=== PATIENT | female | born 1955 | race Caucasian/White ===

== ENCOUNTER 2022-08-11 00:24 | Day surgery (SDC) | payer MEDICARE, SELFPAY ==
[2022-07-29 12:15] VITALS: BMI 35.0
[2022-08-11 07:10] VITALS: BP 164/80; PULSE 81; RESP 18; TEMP 36.1; O2SAT 96; BMI 35.9
[2022-08-11] MEDS: LACTATED RINGERS 1,000 ML 150 ML IV CONT (07:32)
[2022-08-11 07:35] LABS: Glucose Point of Care 193 mg/dl (65-105)
--- NOTE | 2022-08-11 07:55 | WPDANESEPPF ---
Anes - Initial Pre Proc Eval Procedure: Operation Date: 08/11/22 08:30 Proposed Procedures p Screening Colonoscopy - Adam Guerra MD Date/Time: 08/11/22 07:55 Surgeon: Adam Guerra MD Pre Op Diagnosis: neoplasm screening Patient Data Age: 67 Gender: F Height: 1.65 m Weight: 97.9 kg Last Vital Signs Temp 97.0 F L 08/11/22 07:10 Pulse 81 08/11/22 07:10 Resp 18 08/11/22 07:10 BP 164/80 H 08/11/22 07:10 Pulse Ox 96 08/11/22 07:10 O2 Del Method Room Air 08/11/22 07:10 Allergies Allergy/AdvReac Type Severity Reaction Status Date / Time Nguyen chemical AdvReac Anaphylaxis Uncoded 08/11/22 07:17 Home Medications Medication Instructions Recorded Confirmed Type blood sugar diagnostic (OneTouch #100 ea 04/07/21 08/11/22 Rx Ultra Blue Test Strip) blood-glucose meter (Blood Glucose #1 ea 04/07/21 08/11/22 Rx Monitoring kit) lancets (OneTouch UltraSoft #100 ea 04/07/21 08/11/22 Rx Lancets) amlodipine 5 mg tablet 5 mg PO DAILY #90 tabs 12/31/21 08/11/22 Rx glipizide 5 mg tablet, extended 5 mg PO DAILY #90 tabs 12/31/21 08/11/22 Rx release 24 hr lisinopril 20 mg tablet 20 mg PO DAILY #90 tabs 12/31/21 08/11/22 Rx metoprolol tartrate 100 mg tablet 100 mg PO Q12H #180 tabs 12/31/21 08/11/22 Rx simvastatin 40 mg tablet 40 mg PO QHS #90 tabs 12/31/21 08/11/22 Rx metformin 1,000 mg tablet 1,000 mg PO BID #180 tabs 04/30/22 08/11/22 Rx cyclobenzaprine 10 mg tablet 10 mg PO BID PRN muscle spasm #90 07/20/22 08/11/22 Rx tabs Laboratory Tests 08/11/22 07:26 POC Capillary Glucose 193 mg/dl H mg/dl (65-105) Patient hx anesthesia problems: none Family hx anesthesia problems: none Results Review: All pre-operative results and documents have been reviewed as part of the pre-operative evaluation. [facility] Past Medical History Medical History (Updated 04/10/22 @ 19:35 by Zoe Cruz NP) Backache Dyslipidemia Environmental allergies Essential (primary) hypertension Irregular heart rhythm Osteoarthritis Type 2 diabetes mellitus Surgical History Surgical History History of arthroscopic surgery of shoulder 2007 - Right shoulder for frozen shoulder post traumatic dislocation Family History Family History Father Bladder cancer Hypertension Mother Hypertension Alzheimer disease Social History Social History Smoking packs per day: 1 Smoking cigarettes per day: 20.0 Years smoked: 16 Smoking pack-years: 16.00 Smoking status: Former smoker Tobacco type: cigarettes Alcohol intake: current Substance use: never Substance use type: does not use Living arrangements: alone Gender identity (if verbalized by the patient): Female Agree to blood products: Yes Anes - Eval Final PreProcedure Day of Procedure 08/11/22 07:55 Patient weight: obese Heart: regular rate and rhythm Lungs: clear to auscultation Airway: Mallampati scale class II Neurological: alert and oriented Last oral intake: >/= 8 hours ASA classification: III Emergent: no Anesthetic plan: proceed Anesthesia type and monitoring: general GIVS and standard monitoring Results Review: All pre-operative results and documents have been reviewed as part of the pre-operative evaluation. Informed Consent: The patient's anesthetic plan and its attendant risks and benefits were discussed with the patient/family/POA. Questions were solicited and answers provided to the satisfaction of the patient/family/POA.
--- NOTE | 2022-08-11 08:08 | PM.HPGS ---
History of Present Illness History of Present Illness Consent: Risks, benefits, and alternatives have been discussed and questions answered. Patient agrees to proceed with procedure. Chief complaint: neoplasm screening Narrative: Annie Woodson is a 67 year old female Presents for screening colonoscopy. Patient reports that her current weight appetite will lungs are normal. Patient denies abdominal pain. She has had no bleeding. Family history is noncontributory. Patient presents today for neoplasia screening colonoscopy. Last exam 10 years ago was told to be unremarkable. Review of Systems Review of Systems: Review of systems noncontributory. [facility] Past Medical History Medical History (Updated 08/11/22 @ 08:09 by Adam Guerra MD) Backache Dyslipidemia Environmental allergies Essential (primary) hypertension Irregular heart rhythm Osteoarthritis Type 2 diabetes mellitus Surgical History Surgical History History of arthroscopic surgery of shoulder 2007 - Right shoulder for frozen shoulder post traumatic dislocation Family History Family History Father Bladder cancer Hypertension Mother Hypertension Alzheimer disease Social History Social History Smoking packs per day: 1 Smoking cigarettes per day: 20.0 Years smoked: 16 Smoking pack-years: 16.00 Smoking status: Former smoker Tobacco type: cigarettes Alcohol intake: current Substance use: never Substance use type: does not use Living arrangements: alone Gender identity (if verbalized by the patient): Female Agree to blood products: Yes Meds Home Medications and Allergies Home Medications Medication Instructions Recorded Confirmed Type blood sugar diagnostic (OneTouch #100 ea 04/07/21 08/11/22 Rx Ultra Blue Test Strip) blood-glucose meter (Blood Glucose #1 ea 04/07/21 08/11/22 Rx Monitoring kit) lancets (Pro[employer] biostructuresTouch UltraSoft #100 ea 04/07/21 08/11/22 Rx Lancets) amlodipine 5 mg tablet 5 mg PO DAILY #90 tabs 12/31/21 08/11/22 Rx glipizide 5 mg tablet, extended 5 mg PO DAILY #90 tabs 12/31/21 08/11/22 Rx release 24 hr lisinopril 20 mg tablet 20 mg PO DAILY #90 tabs 12/31/21 08/11/22 Rx metoprolol tartrate 100 mg tablet 100 mg PO Q12H #180 tabs 12/31/21 08/11/22 Rx simvastatin 40 mg tablet 40 mg PO QHS #90 tabs 12/31/21 08/11/22 Rx metformin 1,000 mg tablet 1,000 mg PO BID #180 tabs 04/30/22 08/11/22 Rx cyclobenzaprine 10 mg tablet 10 mg PO BID PRN muscle spasm #90 07/20/22 08/11/22 Rx tabs Allergies Allergy/AdvReac Type Severity Reaction Status Date / Time Nguyen chemical AdvReac Anaphylaxis Uncoded 08/11/22 07:17 Vital Signs Vital Signs - 24 hr 08/11/22 07:10 Temperature 97.0 F L Pulse Rate 81 Respiratory Rate 18 Blood Pressure 164/80 H Pulse Oximetry 96 Oxygen Delivery Room Air Exam Narrative: Physical exam reveals patient to be alert. Vital signs stable. HEENT exam is unremarkable. Patient is anicteric. Lungs are clear to auscultation and percussion. Heart is without murmur or extra sounds. Abdomen bowel sounds are present soft nontender with no organomegaly. Digital external rectal exam normal. Assessment and Plan Assessment and plan (1) Encounter for screening colonoscopy: Code(s): Z12.11 - Encounter for screening for malignant neoplasm of colon Status: Acute Assessment and Plan: Patient presents today for neoplasia screening colonoscopy. She appears to be at average risk for colon polyps. Further recommendations may be given after endoscopy.
[2022-08-11 09:08] VITALS: BP 132/69; PULSE 71; RESP 19; O2SAT 100
[2022-08-11 09:18] VITALS: BP 135/76; PULSE 73; RESP 25; O2SAT 100
[2022-08-11 09:28] VITALS: BP 141/78; PULSE 66; RESP 20; O2SAT 100
== END 2022-08-11 09:41 | disposition home or self-care (01) ==
PROVIDERS: PCP Family Medicine; Visit Provider Internal Medicine Gastroenterology
PROC: 0DJD8ZZ Inspection of Lower Intestinal Tract, Via Natural or Artificial Opening Endoscopic (ICD-10-PCS; CPT 45378; principal; 2022-08-11 08:30)
DX: Z12.11 Encounter for screening for malignant neoplasm of colon (principal); K57.30 Diverticulosis of large intestine without perforation or abscess without bleeding; K64.8 Other hemorrhoids; E78.5 Hyperlipidemia, unspecified; I10 Essential (primary) hypertension; M19.90 Unspecified osteoarthritis, unspecified site; E11.9 Type 2 diabetes mellitus without complications; I49.9 Cardiac arrhythmia, unspecified; Z87.891 Personal history of nicotine dependence; Z79.84 Long term (current) use of oral hypoglycemic drugs; E66.9 Obesity, unspecified; Z68.35 Body mass index [BMI] 35.0-35.9, adult
CPT/HCPCS: G0121; 82948; J2704; J7120

== ENCOUNTER 2022-12-30 08:07 | Outpatient (CLI) | payer MEDICARE, SELFPAY ==
--- NOTE | ~2022-12-30 | MM_ITS ---
EXAMINATION: MM screening hu BI w nidia HISTORY: Screening mammogram TECHNIQUE: Craniocaudal and mediolateral oblique 3-D tomosynthesis images were obtained and synthetic 2-D images were generated. CAD analysis was submitted and interpreted. COMPARISON: No prior mammogram is available for comparison at this institution. BREAST PARENCHYMAL COMPOSITION: The breasts are almost entirely fatty. FINDINGS: There is no evidence of suspicious mass, calcification, or architectural distortion to sugg est malignancy in either breast. There has been no suspicious interval change. IMPRESSION: 1. No mammographic evidence of malignancy. 2. Recommend routine screening mammography in one year. BI-RADS Category 1: Negative Reviewed, dictated and finalized at location A. [employer]
--- NOTE | ~2022-12-30 | DEXA_ITS ---
Bone Density Report Name: ADRIANO HUMPHRIES Age: 67 Sex: Female Ethnicity: White Date of : 1955 Indication: postmenopausal; screening for osteoporosis; prior fracture; Referring Provider: TEODORO RETANA Study: Bone densitometry was performed. Exam Date: December 30, 2022 Accession number: [id number] Bone Density: Region BMD T-score Z-score Classification AP Spine(L1-L4) 0.948 -0.9 1.2 Normal Femoral Neck (Left) 0.682 -1.5 0.3 Osteopenia Total Hip (Left) 0.857 -0.7 0.8 Normal Femoral Neck (Right) 0.619 -2.1 -0.3 Osteopenia Total Hip (Right) 0.824 -1.0 0.5 Normal Total Hip Mean 0.841 -0.9 0.7 Normal World Health Organization criteria for BMD impression classify patients as: Normal (T-score at or above -1.0), Osteopenia (T-score between -1.0 and -2.5), or Osteoporosis (T-score at or below -2.5). 10-year Fracture Risk(1): Major Osteoporotic Fracture 17% Hip Fracture 3.0% Reported Risk Factors: [place] (), Neck BMD=0.619, BMI=36.8, previous fracture (1) FRAX(R) Version 3.08. Fracture probability calculated for an untreated patient. Fracture probability may be lower if the patient has received treatment. Clinical Information Provided by Patient: Has had a low trauma fracture Has used the following medications: Vitamin D, Calcium Patient maximum height was 65 Menopause Age: 48 Drinks caffeinated beverages Onset of menses at age 11 Number of children 1 Impression: The patient has low bone mass, based on the Right Femoral Neck T-score. The patient has an estimated ten-year risk of hip fracture of 3% and an estimated ten-year risk of major fracture of 17%, based on the WHO FRAX algorithm. The patient has risk factors, including: previous fracture. Discussion: BONE DENSITY IS LOW AT ONE OR MORE SKELETAL SITES. THE PATIENT'S BMD AND CLINICAL RISK FACTORS CONTRIBUTE TO THIS PATIENT'S INCREASED RISK OF FRACTURE. This patient's lowest T-score is low at one or more skeletal sites. It meets the World Health Organization's (WHO) criteria for ?low bone mass? (T-score between -1.0 and -2.5). The patient's 10-year risk of hip fracture as calculated by FRAX exceeds the threshold where pharmacological therapy is recommended by the National Osteoporosis Foundation (NOF). However, all treatment decisions require clinical judgment and consideration of individual patient factors, including patient preferences, comorbidities, previous drug use, risk factors not captured in the FRAX model (e.g., frailty, falls, vitamin D deficiency, increased bone turnover, interval significant decline in bone density) and possible under or overestimation of fracture risk by FRAX. The patient should follow a healthful lifestyle (good nutrition with adequate calcium and vitamin D, and appropriate weight-bearin
== END 2022-12-30 08:08 | disposition home or self-care (01) ==
LOC: ANHIMG 08:08
PROVIDERS: PCP Family Medicine; Visit Provider Nurse Practitioner Family
DX: Z12.31 Encounter for screening mammogram for malignant neoplasm of breast (principal); Z78.0 Asymptomatic menopausal state; M85.89 Other specified disorders of bone density and structure, multiple sites
CPT/HCPCS: 77063; 77067; 77080

== ENCOUNTER 2023-10-27 09:04 | Outpatient (CLI) | payer MEDICARE, SELFPAY ==
[2023-10-27 19:09] LABS: Basophils Percent Auto 0.5 % (0.2-1.2); Eosinophils Absolute Auto 0.1 K/mm3 (0-0.3); Eosinophils Percent Auto 1.6 % (0-4.4); Hematocrit 41.3 % (37.0-47.0); Hemoglobin 13.1 g/dL (12.0-15.0); Immature Granulocyte Absolute 0.02 K/mm3 (0.00-0.031); Immature Granulocyte Percent A 0.2 % (0-0.5); Lymphocytes Absolute Auto 2.01 K/mm3 (0.9-3.2); Lymphocytes Percent Auto 23.3 % (18.3-44.2); Mean Corpuscular HGB Conc 31.7 g/dl (32-36); Mean Corpuscular Hemoglobin 30.5 pg (26-34); Mean Platelet Volume 10.3 fl (7.4-10.4); Monocytes Absolute Auto 0.6 K/mm3 (0.1-0.6); Monocytes Percent Auto 6.5 % (2.6-8.5); Neutrophils Absolute Auto 5.9 K/mm3 (1.3-6.7); Neutrophils Percent Auto 67.9 % (45.5-73.1); Platelet Count Result 282 k/mm3 (150-375); Red Cell Distribution Width 13.9 % (11.5-14.5); White Blood Count 8.6 K/mm3 (4.5-10.0)
[2023-10-27 19:15] LABS: Alanine Aminotransferase 32 U/L (6-35); Alkaline Phosphatase 69 U/L (38-126); Anion Gap 10 mmol/L (8-16); Aspartate Amino Transferase 34 U/L (14-36); Bilirubin,Total 0.4 mg/dL (0.2-1.3); Blood Urea Nitrogen 21 mg/dL (7-17); Calcium 8.9 mg/dL (8.4-10.2); Carbon Dioxide 26 mmol/L (22-30); Chloride 101 mmol/L (98-107); Cholesterol 172 mg/dL (0-200); Estimated Glomerular Filt Rate > 60; Glucose 194 mg/dL (65-110); HDL Direct 46 mg/dL; Potassium 4.7 mmol/L (3.4-5.0); Sodium 137 mmol/L (137-145); Triglycerides 162 mg/dL (<150)
[2023-10-27 19:26] LABS: LDL Cholesterol Direct 93 mg/dL
[2023-10-27 20:15] LABS: Hemoglobin A1C 7.4 % (<5.7)
== END 2023-10-27 09:05 | disposition home or self-care (01) ==
LOC: ANHGOSHLAB 09:05
PROVIDERS: PCP Family Medicine; Visit Provider Nurse Practitioner Family
DX: Z13.220 Encounter for screening for lipoid disorders (principal); E11.9 Type 2 diabetes mellitus without complications; I10 Essential (primary) hypertension; Z13.1 Encounter for screening for diabetes mellitus; Z13.29 Encounter for screening for other suspected endocrine disorder
CPT/HCPCS: 36415; 80053; 80061; 83036; 84443; 85025

== ENCOUNTER 2024-05-23 12:32 | Outpatient (CLI) | payer MEDICARE, SELFPAY ==
[2024-05-23 16:25] LABS: Alanine Aminotransferase 31 U/L (6-35); Albumin Level 4.7 g/dL (3.5-5.1); Alkaline Phosphatase 78 U/L (38-126); Anion Gap 15 mmol/L (4-12); Aspartate Amino Transferase 48 U/L (14-36); Bilirubin,Total 0.5 mg/dL (0.2-1.3); Blood Urea Nitrogen 22 mg/dL (7-17); Calcium 9.4 mg/dL (8.4-10.2); Carbon Dioxide 24 mmol/L (22-30); Chloride 101 mmol/L (98-107); Cholesterol 157 mg/dL (0-200); Estimated Glomerular Filt Rate > 60; Glucose 150 mg/dL (65-110); HDL Direct 43 mg/dL; Potassium 4.5 mmol/L (3.4-5.0); Sodium 140 mmol/L (137-145); Triglycerides 123 mg/dL (<150)
[2024-05-23 16:36] LABS: LDL Cholesterol Direct 79 mg/dL
[2024-05-23 18:38] LABS: Hemoglobin A1C 8.7 % (<5.7)
[2024-05-23 18:47] LABS: Creatinine Urine 250.9 mg/dL; MALB Creatinine Ratio 9.6 mg/g (0-30)
[2024-05-23 19:02] LABS: Vitamin D 25 Hydroxy 82.5 ng/mL
[2024-05-23 19:33] LABS: Hepatitis C Virus Antibody Negative (Negative)
== END 2024-05-23 12:33 | disposition home or self-care (01) ==
PROVIDERS: PCP Family Medicine; Visit Provider Nurse Practitioner Family
DX: E78.5 Hyperlipidemia, unspecified (principal); I10 Essential (primary) hypertension; E11.9 Type 2 diabetes mellitus without complications; E55.9 Vitamin D deficiency, unspecified; Z11.59 Encounter for screening for other viral diseases
CPT/HCPCS: 36415; 80053; 80061; 82043; 82306; 83036; 86803

== ENCOUNTER 2024-06-05 09:00 | Outpatient (CLI) | payer MEDICARE, SELFPAY ==
--- NOTE | ~2024-06-05 | XR_ITS ---
AP view of the pelvis and AP and lateral views of the right hip Clinical history: Pain Findings: No acute fracture or dislocation is seen. Osseous alignment is anatomic. Bilateral hip and SI joint spaces are preserved. Soft tissues are unremarkable. Impression: No significant abnormality is seen. Reviewed, dictated and finalized at [facility]. Impression: No significant abnormality is seen.
== END 2024-06-05 09:01 ==
LOC: GOSHIMG 09:00
PROVIDERS: PCP Nurse Practitioner Family; Visit Provider Nurse Practitioner Family
DX: M25.551 Pain in right hip (principal)
CPT/HCPCS: 73502

== ENCOUNTER 2024-06-05 09:33 | Outpatient (CLI) | payer MEDICARE, SELFPAY ==
[2024-06-05 12:54] LABS: Hemoglobin A1C 8.3 % (<5.7)
== END 2024-06-05 09:34 | disposition home or self-care (01) ==
LOC: ANHGOSHLAB 09:35
PROVIDERS: PCP Nurse Practitioner Family; Visit Provider Nurse Practitioner Family
DX: E11.9 Type 2 diabetes mellitus without complications (principal)
CPT/HCPCS: 36415; 83036

== ENCOUNTER 2024-09-26 07:52 | Outpatient (CLI) | payer MEDICARE, SELFPAY ==
--- NOTE | ~2024-09-26 | MM_ITS ---
EXAMINATION: MM screening hu BI w nidia HISTORY: Screening TECHNIQUE: Craniocaudal and mediolateral oblique 3-D tomosynthesis images were obtained and synthetic 2-D images were generated. CAD analysis was submitted and interpreted. COMPARISON: 12/30/2022 BREAST PARENCHYMAL COMPOSITION: Not dense: There are scattered areas of fibroglandular density. FINDINGS: There is no evidence of suspicious mass, calcification, or architectural distortion to sugg est malignancy in either breast. There has been no suspicious interval change. IMPRESSION: 1. No mammographic evidence of malignancy. 2. Recommend routine screening mammography in one year. BI-RADS Category 1: Negative Reviewed, dictated and finalized at location B. TOLOGIST
== END 2024-09-26 07:53 | disposition home or self-care (01) ==
LOC: ANHIMG 07:53
PROVIDERS: PCP Family Medicine; Visit Provider Family Medicine
DX: Z12.31 Encounter for screening mammogram for malignant neoplasm of breast (principal)
CPT/HCPCS: 36415; 77063; 77067; 80053; 83036; 84443

== ENCOUNTER 2024-09-26 11:17 | Outpatient (CLI) | payer MEDICARE, SELFPAY ==
[2024-09-26 12:38] LABS: Alanine Aminotransferase 23 U/L (6-35); Albumin Level 4.3 g/dL (3.5-5.1); Alkaline Phosphatase 66 U/L (38-126); Anion Gap 6 mmol/L (4-12); Aspartate Amino Transferase 46 U/L (14-36); Bilirubin,Total 0.5 mg/dL (0.2-1.3); Blood Urea Nitrogen 13 mg/dL (7-17); Calcium 9.3 mg/dL (8.4-10.2); Carbon Dioxide 26 mmol/L (22-30); Chloride 107 mmol/L (98-107); Estimated Glomerular Filt Rate 49; Glucose 65 mg/dL (65-110); Potassium 4.8 mmol/L (3.4-5.0); Sodium 139 mmol/L (137-145)
[2024-09-26 13:21] LABS: Hemoglobin A1C 5.8 % (<5.7)
== END 2024-09-26 11:18 | disposition home or self-care (01) ==
PROVIDERS: PCP Family Medicine; Visit Provider Nurse Practitioner Family
DX: I10 Essential (primary) hypertension (principal); E11.9 Type 2 diabetes mellitus without complications
CPT/HCPCS: 36415; 80053; 83036; 84443